=== PATIENT | male | born 1985 | race Caucasian/White ===

== ENCOUNTER 2017-01-27 16:46 | Emergency (ER) | payer SELFPAY ==
[~2017-01-27] VITALS: Wt 77.5 kg
[2017-01-27] MEDS ORDERED: RANITIDINE 150 MG TAB PO ONE (18:30)
[2017-01-27] MEDS ORDERED: CEFTRIAXONE 250 MG INJ IM ONE (18:30)
[2017-01-27] MEDS ORDERED: AZITHROMYCIN 250 MG TAB PO ONE (18:30)
--- NOTE | 2017-01-27 19:41 | ERD ---
ER Documentation Chief Complaint Chief Complaint +chlamydia, given antibx, still has burning on urination HPI This pleasant 31-year-old male patient presents to emergency department for reevaluation of STD, patient was seen and treated on 01/06/2017 at [facility], patient brings in a test report that is urine positive for chlamydia, negative for gonorrhea. She was prescribed 1 g of azithromycin on , patient states that he took medication it did not seem to help with symptoms he has abdominal pain, and diarrhea. ROS All systems reviewed and are negative except as per history of present illness. PMhx/Soc History of Surgery: No Anesthesia Reaction: No Hx Neurological Disorder: No Hx Respiratory Disorders: No Hx Cardiac Disorders: No Hx Psychiatric Problems: No Hx Miscellaneous Medical Probl: No Hx Alcohol Use: Yes Hx Substance Use: Yes Hx Tobacco Use: Yes Smoking Status: Current every day smoker Physical Exam Vitals Vital Signs Date Time Temp Pulse Resp B/P Pulse Ox O2 Delivery O2 Flow Rate FiO2 01/27/17 17:01 98.9 72 20 142/78 98 Vitals stable, triage notes reviewed Physical Exam Const: Well-nourished well-hydrated well-appearing 31-year-old male patient no acute distress Head: Eyes: Normal Conjunctiva PERRLA, EOMI ENT: Neck: Resp: Cardio: Abd: Soft, non tender, non distended. No CVA tenderness Male genitalia: Deferred Skin: Back: No midline or flank tenderness Ext: Neur: Awake and alert Psych: Normal Mood and Affect Results 24 hrs Laboratory Tests Test 01/27/17 18:00 Urine Color YELLOW Urine Clarity CLEAR Urine pH 5.[address] 1.025 Urine Ketones NEGATIVEmg/dL Urine Nitrite NEGATIVEmg/dL Urine Bilirubin NEGATIVEmg/dL Urine Urobilinogen NEGATIVEmg/dL Urine Leukocyte Esterase NEGATIVELeu/ul Urine Microscopic RBC 4/HPF Urine Microscopic WBC 2/HPF Urine Mucus FEW/HPF Urine Hemoglobin 1+mg/dL Urine Glucose NEGATIVEmg/dL Urine Total Protein NEGATIVEmg/dl Current Medications Medications (Trade) Dose Ordered Sig/Williams Route PRN Reason Start Time Stop Time Status Last Admin Dose Admin Azithromycin (Zithromax) 1,000 mg ONCE ONCE PO 01/27/17 18:30 01/27/17 18:31 DC 01/27/17 18:50 Ceftriaxone Sodium (Rocephin) 250 mg ONCE ONCE IM 01/27/17 18:30 01/27/17 18:31 DC 01/27/17 18:51 Ranitidine HCl (Zantac) 150 mg ONCE ONCE PO 01/27/17 18:30 01/27/17 18:31 DC 01/27/17 19:17 Procedures/MDM This 31-year-old male patient presents to emergency department for repeat testing and treatment of a positive chlamydia test treated at [facility] with 1 g of azithromycin, patient reports symptoms still present only now he has abdominal pain and diarrhea. Patient reports that he is sexually one partner. Patient denies any lesions, ulcers, or discharge from penis. Emergency room course includes repeat GC and chlamydia on the urine, free preventative treatment with 50 mg of Rocephin, 1 g of azithromycin, patient given 150 mg of Zantac, and will be discharged home with Zantac 150 mg twice daily 15 days, and doxycycline 1 tab p.o. twice daily 7 days. Repeat STD check in 14 days. Patient is stable with no new complaints during ER course , clinically there is no current evidence to suggest urinary tract infection, pyelonephritis, acute abdomen, testicular torsion or any other emergent condition appearing to require further evaluation or hospitalization. I feel the patient is stable for discharge at this time. I have discussed results, examination findings, the treatment plan with the patient and family present prior to discharge. Indications for emergent reevaluation, side effects of medication were also discussed. All questions were answered. Patient verbalizes understanding and agrees with plan of care. Departure Diagnosis: Primary Impression: STI (sexually transmitted infection) Condition: Good Patient Instructions: Chlamydia, Male Referrals: [facility] Additional Instructions: Thank you for for coming to the [facility] for your care today. Please ask your nurse or provider if you have questions about your care today and do not leave until all your questions have been answered. Please use any medications given as directed and follow-up with your doctor (or the doctor you were referred to) in the next 2-3 days. If you do not have a primary care doctor you may [place] [facility] [place] ([place]). You may also use motrin and tylenol as needed for fever and/or pain unless instructed otherwise by your provider or nurse. Indications for more urgent follow-up have been discussed, but you may return to the Emergency Department at ANY time for any worrisome or worsening symptoms. If you have abdominal pain, please know that no test or exam you received is perfect and you should follow up within 8 hours for continued pain. If you had any imaging studies today, such as an X-Ray or CT Scan, these studies will be reviewed later by a radiologist. You will be called if there are important findings that were not identified today, so make sure the contact information you provided at registration is correct. If you received any narcotic pain control medicine today, such as Vicodin, Morphine or Dilaudid, your coordination and judgment may be affected for a number of hours. Please do not drive or operate heavy machinery, and you may want someone to assist you at home. If you were given a prescription for narcotic medication, be aware that it is very addictive- use sparingly and only if necessary. ADRIEL MARCIAL Jan 27, 2017 19:41
[2017-01-27] MEDS ORDERED: DOXY100T20 PO (19:42)
[2017-01-27 19:51] VITALS: BP 128/71; PULSE 62; RESP 16
== END 2017-01-27 19:52 | disposition home or self-care (01) ==
LOC: FTE 16:46
DX: A64 Unspecified sexually transmitted disease (principal); F17.210 Nicotine dependence, cigarettes, uncomplicated
CPT/HCPCS: 81001; 87591; 96372; 99284; J0696

== ENCOUNTER 2017-10-11 21:16 | Emergency (ER) | END 2017-10-12 04:05 | disposition home or self-care (01) ==